=== PATIENT | male | born 1955 | race Caucasian/White ===

== ENCOUNTER 2016-04-07 13:58 | Emergency (ER) | payer OTHER ==
[~2016-04-07] VITALS: Ht 175.3 cm; Wt 70.9 kg
[~2016-04-07 13:58] MED LIST: ADALAT CC 60 MG60 MG PO; BENADRYL50 MG PO; CLONIDINE HCL0.1 MG PO; LEVAQUIN500 MG PO; OXYCODONE-ACET1 EACH PO; TERAZOSIN HCL1 MG PO; TRAMADOL HCL50 MG PO
[2016-04-07 14:58] LABS: HEMATOCRIT 31.3 % (38.0-50.0); MCH 28.2 PG (29.0-34.0); MCHC 32.9 G/DL (30.0-36.0); MCV 85.8 FL (86-99); MEAN PLAT.VOLUME 7.8 uM^3 (9.0-12.4); PLATELET COUNT 333 K/uL (156-360); RBC DIS.WIDTH-CV 13.9 % (11.8-14.6); RBC DIS.WIDTH-SD 42.5 % (39-53); RED BLOOD COUNT 3.65 M/uL (4.00-5.50); WHITE BLOOD COUNT 9.9 K/uL (4.1-10.2)
[2016-04-07 15:06] LABS: CHLORIDE 107 mEq/L (99-109); POTASSIUM 4.9 mEq/L (3.7-5.4); SODIUM 139 mEq/L (136-147)
[2016-04-07 15:08] LABS: GLUCOSE 132 mg/dL (70-99)
[2016-04-07 15:09] LABS: ANION GAP 15 MEQ/L (2-14)
[2016-04-07 15:10] LABS: TOTAL BILIRUBIN 0.3 mg/dL (0.0-1.0)
[2016-04-07 15:12] LABS: ALKALINE PHOSPHATASE 83 IU/L (3-129); GFR ESTIMATE (CALCULATED) 9 mL/min/
[2016-04-07 15:13] LABS: UREA NITROGEN (BUN) 82 mg/dL (9-23)
[2016-04-07 17:05] LABS: ADD MIUA? YES; BILIRUBIN NEGATIVE; BLOOD MODERATE; COLOR YELLOW ((YELLOW)); GLUCOSE (STRIP) NEGATIVE; KETONES NEGATIVE; LEUKOCYTES LARGE; NITRITE POSITIVE; PROTEIN (STRIP) 30; SPECIFIC GRAVITY 1.011 (1.000-1.030); UROBILINOGEN 0.2 MG/DL (0.2-1.0)
[2016-04-07 17:40] VITALS: BP 160/100
[2016-04-07 17:56] LABS: BACTERIA 1+; CASTS NONE SEEN /LPF; CRYSTALS NONE SEEN; EPITHELIAL CELLS RARE; MUCUS NONE SEEN; PATHOLOGICAL CAST NONE SEEN; RED BLOOD CELLS 15-20 /HPF (0-5); SMALL ROUND CELL NONE SEEN; UCUL ADDED? YES; WHITE BLOOD CELLS TNTC /HPF (0-5); YEAST-LIKE CELL NONE SEEN
[2016-04-07] MEDS ORDERED: KEFLEX500 MG PO (19:24)
[2016-04-07 19:30] VITALS: BP 166/100
== END 2016-04-07 19:49 | disposition home or self-care (01) ==
LOC: RME 13:58 → EME 13:58 → RME 19:49
DX: N17.9 Acute kidney failure, unspecified (principal); I12.9 Hypertensive chronic kidney disease with stage 1 through stage 4 chronic kidney disease, or unspecified chronic kidney disease; N18.4 Chronic kidney disease, stage 4 (severe); N39.0 Urinary tract infection, site not specified; D64.9 Anemia, unspecified; R73.9 Hyperglycemia, unspecified; C61 Malignant neoplasm of prostate; Z86.73 Personal history of transient ischemic attack (TIA), and cerebral infarction without residual deficits; F17.200 Nicotine dependence, unspecified, uncomplicated
CPT/HCPCS: 80053; 81003; 85027; 87086; 99281; 99284

== ENCOUNTER 2016-05-25 14:44 | Emergency (ER) | payer OTHER ==
[~2016-05-25] VITALS: Ht 167.6 cm; Wt 68.0 kg
[~2016-05-25 14:44] MED LIST changes: +KEFLEX500 MG PO
[2016-05-25 15:51] LABS: HEMATOCRIT 28.9 % (38.0-50.0); MCH 28.7 PG (29.0-34.0); MCHC 33.6 G/DL (30.0-36.0); MCV 85.5 FL (86-99); PLATELET COUNT 446 K/uL (156-360); RBC DIS.WIDTH-CV 13.9 % (11.8-14.6); RBC DIS.WIDTH-SD 42.1 % (39-53); RED BLOOD COUNT 3.38 M/uL (4.00-5.50)
[2016-05-25 16:10] LABS: CHLORIDE 103 mEq/L (99-109); POTASSIUM 5.1 mEq/L (3.7-5.4); SODIUM 134 mEq/L (136-147)
[2016-05-25 16:12] LABS: GLUCOSE 101 mg/dL (70-99)
[2016-05-25 16:13] LABS: ANION GAP 14 MEQ/L (2-14)
[2016-05-25 16:16] LABS: GFR ESTIMATE (CALCULATED) 9 mL/min/
[2016-05-25 16:17] LABS: UREA NITROGEN (BUN) 80 mg/dL (9-23)
[2016-05-25 16:23] LABS: ADD MIUA? YES; BILIRUBIN NEGATIVE; BLOOD MODERATE; COLOR YELLOW ((YELLOW)); GLUCOSE (STRIP) NEGATIVE; KETONES NEGATIVE; LEUKOCYTES LARGE; NITRITE NEGATIVE; PROTEIN (STRIP) 100; SPECIFIC GRAVITY 1.009 (1.000-1.030); UROBILINOGEN 0.2 MG/DL (0.2-1.0)
[2016-05-25 16:41] LABS: EOSINOPHIL (%) 0.4 % (0-5); EOSINOPHIL COUNT 0.1 K/uL (0-0.3); HEMATOLOGY COMMENT 1 SMEAR COMPATIBLE; IMMATURE GRANULOCYTE (%) 3.9 % (0.0-0.7); IMMATURE GRANULOCYTE COUNT 7.1 K/uL; LYMPHOCYTE COUNT 1.9 K/uL (1.0-2.8); MONOCYTE (%) 7.3 % (3-12); MONOCYTE COUNT 1.3 K/uL (0-0.8); NEUTROPHIL (%) 77.8 % (45-76); USER ID SS
[2016-05-25] MEDS ORDERED: LEVOFLOXACIN500 MG (16:46)
[2016-05-25] MEDS ORDERED: KEFLEX500 MG PO ×2 (16:50→17:16)
[2016-05-25 16:55] LABS: BACTERIA RARE /HPF; EPITHELIAL CELLS NONE SEEN /HPF; MUCUS TRACE /LPF; UCUL ADDED? YES; WHITE BLOOD CELLS TNTC /HPF (0-5); WHITE BLOOD CELLS CLUMP MANY /HPF (0-5)
[2016-05-25 18:16] VITALS: BP 134/74
== END 2016-05-25 18:18 | disposition home or self-care (01) ==
LOC: EME 14:44
PROVIDERS: Emergency Medicine
DX: N30.90 Cystitis, unspecified without hematuria (principal); I12.0 Hypertensive chronic kidney disease with stage 5 chronic kidney disease or end stage renal disease; N18.5 Chronic kidney disease, stage 5; C61 Malignant neoplasm of prostate; F17.200 Nicotine dependence, unspecified, uncomplicated
CPT/HCPCS: 71010; 74176; 80048; 81003; 85025; 87077; 87086; 87186; 99281; 99284

== ENCOUNTER 2016-07-18 16:38 | Inpatient (IN) | payer OTHER ==
[~2016-07-18] VITALS: Ht 172.7 cm; Wt 70.4 kg
[~2016-07-18 16:38] MED LIST changes: +LEVOFLOXACIN500 MG
[2016-07-18 19:14] LABS: HEMATOCRIT 29.6 % (38.0-50.0); MCH 28.6 PG (29.0-34.0); MCHC 32.8 G/DL (30.0-36.0); MCV 87.3 FL (86-99); MEAN PLAT.VOLUME 8.4 uM^3 (9.0-12.4); PLATELET COUNT 323 K/uL (156-360); RBC DIS.WIDTH-CV 13.2 % (11.8-14.6); RBC DIS.WIDTH-SD 42.4 % (39-53); RED BLOOD COUNT 3.39 M/uL (4.00-5.50); WHITE BLOOD COUNT 11.6 K/uL (4.1-10.2)
[2016-07-18 19:21] LABS: ADD MIUA? YES; BILIRUBIN NEGATIVE; BLOOD MODERATE; COLOR YELLOW ((YELLOW)); GLUCOSE (STRIP) NEGATIVE; KETONES NEGATIVE; LEUKOCYTES LARGE; NITRITE POSITIVE; PROTEIN (STRIP) 100; UROBILINOGEN 0.2 MG/DL (0.2-1.0)
[2016-07-18 19:38] LABS: CHLORIDE 102 mEq/L (99-109); POTASSIUM 4.9 mEq/L (3.7-5.4); SODIUM 133 mEq/L (136-147)
[2016-07-18 19:40] LABS: GLUCOSE 97 mg/dL (70-99)
[2016-07-18 19:42] LABS: ANION GAP 15 MEQ/L (2-14); TOTAL BILIRUBIN 0.6 mg/dL (0.0-1.0)
[2016-07-18 19:44] LABS: ALKALINE PHOSPHATASE 64 IU/L (3-129); GFR ESTIMATE (CALCULATED) 8 mL/min/
[2016-07-18 19:45] LABS: AMORPHOUS PHOSPHATE CRYSTALS 2+; BACTERIA 1+ /HPF; EPITHELIAL CELLS NONE SEEN /HPF; MUCUS NONE SEEN /LPF; RED BLOOD CELLS 15-20 /HPF (0-5); UCUL ADDED? NO; WHITE BLOOD CELLS 40-50 /HPF (0-5)
[2016-07-18 19:58] LABS: UREA NITROGEN (BUN) 101 mg/dL (9-23)
[2016-07-19 02:40] VITALS: BP 142/83
[2016-07-19 02:45] LABS: CREATINE KINASE 117 IU/L (1-294)
[2016-07-19 03:00] VITALS: BP 142/83
[2016-07-19 06:26] LABS: HEMATOCRIT 26.1 % (38.0-50.0); MCH 28.9 PG (29.0-34.0); MCHC 32.6 G/DL (30.0-36.0); MCV 88.8 FL (86-99); MEAN PLAT.VOLUME 8.4 uM^3 (9.0-12.4); PLATELET COUNT 254 K/uL (156-360); RBC DIS.WIDTH-CV 13.2 % (11.8-14.6); RBC DIS.WIDTH-SD 43.1 % (39-53); RED BLOOD COUNT 2.94 M/uL (4.00-5.50)
[2016-07-19 06:40] LABS: WHITE BLOOD COUNT 7.4 K/uL (4.1-10.2)
[2016-07-19 06:49] LABS: ANION GAP 15 MEQ/L (2-14); CHLORIDE 105 MEQ/L (99-109); GFR ESTIMATE (CALCULATED) 8 mL/min/; GLUCOSE 114 mg/dL (70-99); MAGNESIUM 2.1 mg/dl (1.3-2.7); POTASSIUM 5.1 MEQ/L (3.7-5.4); SAMPLE HEMOLYSIS CHECK 0; SAMPLE ICTERIC CHECK 0; SAMPLE LIPEMIA CHECK 0; SODIUM 139 MEQ/L (136-147); UREA NITROGEN (BUN) 97 mg/dL (9-23)
[2016-07-19 07:40] VITALS: BP 140/83
[2016-07-19 11:15] VITALS: BP 135/84
[2016-07-19 14:20] LABS: IRON 28 MCG/DL (35-150)
[2016-07-19 15:24] VITALS: BP 161/82
[2016-07-19 20:29] VITALS: BP 140/84
[2016-07-20 00:05] VITALS: BP 129/72
[2016-07-20 08:00] VITALS: BP 112/61
[2016-07-20 10:16] LABS: HEMATOCRIT 29.3 % (38.0-50.0); MCH 28.5 PG (29.0-34.0); MCHC 32.1 G/DL (30.0-36.0); MCV 88.8 FL (86-99); MEAN PLAT.VOLUME 8.6 uM^3 (9.0-12.4); PLATELET COUNT 284 K/uL (156-360); RBC DIS.WIDTH-CV 13.4 % (11.8-14.6); RBC DIS.WIDTH-SD 44.1 % (39-53); WHITE BLOOD COUNT 6.2 K/uL (4.1-10.2)
[2016-07-20 10:40] LABS: INTACT PARATHYROID HORMONE 34 pg/mL (10-69)
[2016-07-20 10:44] LABS: ANION GAP 15 MEQ/L (2-14); CHLORIDE 107 MEQ/L (99-109); GFR ESTIMATE (CALCULATED) 8 mL/min/; GLUCOSE 94 mg/dL (70-99); GLUCOSE 95 mg/dL (70-99); POTASSIUM 4.8 MEQ/L (3.7-5.4); SAMPLE HEMOLYSIS CHECK 0; SAMPLE ICTERIC CHECK 0; SAMPLE LIPEMIA CHECK 0; SODIUM 139 MEQ/L (136-147); UREA NITROGEN (BUN) 89 mg/dL (9-23)
[2016-07-20 10:56] LABS: VANCOMYCIN, TROUGH 8.7 MCG/ML (10-20)
[2016-07-20 11:46] LABS: HBSG INDEX 0.19
[2016-07-20 11:47] LABS: AHBS INDEX 0.05; HEPATITIS B SURFACE ANTIBODY Nonreactive; HPCA INDEX 0.19
[2016-07-20 15:42] VITALS: BP 152/93
[2016-07-20 21:26] VITALS: BP 133/81
[2016-07-21 00:01] VITALS: BP 156/85
[2016-07-22] MEDS ORDERED: LINEZOLID600 MG PO (16:02)
[2016-07-22] MEDS ORDERED: KAYEXALATE15 GM/60 M PO (17:47)
[2016-07-23 11:33] LABS: IFE GEL NO. 49-1
== END 2016-07-21 02:22 | disposition left against medical advice (07) | DRG 683 ==
LOC: EME 16:38 → EDOF 07-19 00:55 → 4SOUTH 07-19 00:55
PROVIDERS: Hospitalist; Internal Medicine; Physician Assistant; Student in an Organized Health Care Education/Training Program
DX: N17.9 Acute kidney failure, unspecified (principal); I12.0 Hypertensive chronic kidney disease with stage 5 chronic kidney disease or end stage renal disease; F17.210 Nicotine dependence, cigarettes, uncomplicated; N18.5 Chronic kidney disease, stage 5; N39.0 Urinary tract infection, site not specified; B95.62 Methicillin resistant Staphylococcus aureus infection as the cause of diseases classified elsewhere; Z85.46 Personal history of malignant neoplasm of prostate; Z96.0 Presence of urogenital implants; I69.954 Hemiplegia and hemiparesis following unspecified cerebrovascular disease affecting left non-dominant side; G89.29 Other chronic pain; N13.30 Unspecified hydronephrosis; E87.5 Hyperkalemia; Z87.440 Personal history of urinary (tract) infections; R33.9 Retention of urine, unspecified
CPT/HCPCS: 71020; 74176; 76770; 80048 91; 80053; 80069; 80202; 81003; 82306; 82436; 82550; 82550 91; 83540; 83605; 83735; 83970; 84133; 84300; 84403; 84466; 84550; 85027; 86334; 86706; 86803; 87040; 87077; 87086; 87147; 87186; 87340; 93975; 99281; 99285; G0103; J0696; J1756; J3370; J7030; J7050

== ENCOUNTER 2016-07-21 04:03 | Emergency (ER) | payer OTHER ==
[~2016-07-21] VITALS: Ht 172.7 cm; Wt 71.5 kg
[2016-07-21 04:08] VITALS: BP 146/89
[2016-07-22] MEDS ORDERED: LINEZOLID600 MG PO (16:02)
[2016-07-22] MEDS ORDERED: KAYEXALATE15 GM/60 M PO (17:47)
== END 2016-07-21 05:32 | disposition left against medical advice (07) ==
LOC: EME 04:03
DX: N18.6 End stage renal disease (principal); N39.0 Urinary tract infection, site not specified; Z86.14 Personal history of Methicillin resistant Staphylococcus aureus infection; Z53.20 Procedure and treatment not carried out because of patient's decision for unspecified reasons; Z86.73 Personal history of transient ischemic attack (TIA), and cerebral infarction without residual deficits; F17.200 Nicotine dependence, unspecified, uncomplicated

== ENCOUNTER 2016-07-21 13:31 | Emergency (ER) | payer OTHER ==
[~2016-07-21] VITALS: Ht 172.7 cm; Wt 70.0 kg
[2016-07-21 14:03] VITALS: BP 155/114
[2016-07-22] MEDS ORDERED: LINEZOLID600 MG PO (16:02)
[2016-07-22] MEDS ORDERED: KAYEXALATE15 GM/60 M PO (17:47)
== END 2016-07-21 15:01 | disposition left against medical advice (07) ==
LOC: EME 13:31
DX: R42 Dizziness and giddiness (principal); R53.1 Weakness; Z53.21 Procedure and treatment not carried out due to patient leaving prior to being seen by health care provider

== ENCOUNTER 2016-07-22 12:09 | Emergency (ER) | payer OTHER ==
[~2016-07-22] VITALS: Ht 172.7 cm; Wt 69.0 kg
[2016-07-22 12:16] VITALS: BP 167/115
[2016-07-22] MEDS ORDERED: LINEZOLID600 MG PO (16:02)
[2016-07-22] MEDS ORDERED: KAYEXALATE15 GM/60 M PO (17:47)
== END 2016-07-22 12:54 | disposition left against medical advice (07) ==
LOC: EME 12:09
DX: M79.602 Pain in left arm (principal); Z53.21 Procedure and treatment not carried out due to patient leaving prior to being seen by health care provider
CPT/HCPCS: 99281; 99282

== ENCOUNTER 2016-07-22 13:04 | Emergency (ER) | payer OTHER ==
[~2016-07-22] VITALS: Ht 172.7 cm; Wt 69.0 kg
[2016-07-22 14:25] LABS: HEMATOCRIT 32.7 % (38.0-50.0); MCH 28.3 PG (29.0-34.0); MCHC 32.4 G/DL (30.0-36.0); MCV 87.2 FL (86-99); MEAN PLAT.VOLUME 8.1 uM^3 (9.0-12.4); PLATELET COUNT 363 K/uL (156-360); RBC DIS.WIDTH-CV 13.2 % (11.8-14.6); RBC DIS.WIDTH-SD 41.9 % (39-53); RED BLOOD COUNT 3.75 M/uL (4.00-5.50)
[2016-07-22 14:26] LABS: WHITE BLOOD COUNT 8.8 K/uL (4.1-10.2)
[2016-07-22 14:34] LABS: CHLORIDE 103 mEq/L (99-109); POTASSIUM 5.5 mEq/L (3.7-5.4); SODIUM 136 mEq/L (136-147)
[2016-07-22 14:35] LABS: GLUCOSE 117 mg/dL (70-99)
[2016-07-22 14:37] LABS: ANION GAP 16 MEQ/L (2-14)
[2016-07-22 14:39] LABS: ADD MIUA? YES; BILIRUBIN NEGATIVE; BLOOD MODERATE; COLOR YELLOW ((YELLOW)); GLUCOSE (STRIP) NEGATIVE; KETONES NEGATIVE; LEUKOCYTES LARGE; NITRITE NEGATIVE; PROTEIN (STRIP) 100; UROBILINOGEN 0.2 MG/DL (0.2-1.0)
[2016-07-22 14:40] LABS: GFR ESTIMATE (CALCULATED) 8 mL/min/; UREA NITROGEN (BUN) 90 mg/dL (9-23)
[2016-07-22 14:50] LABS: SERUM ETHYL ALCOHOL < 10 mg/dL
[2016-07-22 15:17] LABS: BACTERIA RARE /HPF; BUDDING YEAST 2+; EPITHELIAL CELLS RARE /HPF; MUCUS NONE SEEN /LPF; RED BLOOD CELLS 40-50 /HPF (0-5)
[2016-07-22 15:19] LABS: UCUL ADDED? NO; WHITE BLOOD CELLS 40-50 /HPF (0-5)
[2016-07-22 15:41] LABS: AMPHETAMINE NEGATIVE (500 ng/mL); BARBITURATES NEGATIVE (200 ng/mL); BENZODIAZEPINES NEGATIVE (150 ng/mL); COCAINE NEGATIVE (150 ng/mL); INTERNAL CONTROLS VALID? YES; METHADONE NEGATIVE (200 ng/mL); METHAMPHETAMINE NEGATIVE (500 ng/mL); OPIATES (MORPHINE) NEGATIVE (100 ng/mL); OXYCODONE NEGATIVE (100 ng/mL); PHENCYCLIDINE NEGATIVE (25 ng/mL); PROPOXYPHENE NEGATIVE (300 ng/mL); THC CANNABINOIDS NEGATIVE (50 ng/mL); TRICYCLIC ANTIDEPRESSANTS NEGATIVE (300 ng/mL)
[2016-07-22] MEDS ORDERED: LINEZOLID600 MG PO (16:02)
[2016-07-22] MEDS ORDERED: KAYEXALATE15 GM/60 M PO (17:47)
[2016-07-22 19:08] VITALS: BP 123/93
== END 2016-07-22 19:11 | disposition left against medical advice (07) ==
LOC: EME 13:04
PROVIDERS: Emergency Medicine
DX: N18.6 End stage renal disease (principal); N39.0 Urinary tract infection, site not specified; E87.5 Hyperkalemia; F17.200 Nicotine dependence, unspecified, uncomplicated; Z86.73 Personal history of transient ischemic attack (TIA), and cerebral infarction without residual deficits
CPT/HCPCS: 80048; 81003; 85027; 93005; 93971; 99281; 99284; G0480

== ENCOUNTER 2016-07-22 20:25 | Emergency (ER) | payer OTHER ==
[~2016-07-22] VITALS: Ht 172.7 cm; Wt 69.4 kg
[~2016-07-22 20:25] MED LIST changes: +KAYEXALATE15 GM/60 M PO; +LINEZOLID600 MG PO
[2016-07-22 20:28] VITALS: BP 191/108
== END 2016-07-23 01:02 | disposition left against medical advice (07) ==
LOC: EME 20:25
DX: N17.9 Acute kidney failure, unspecified (principal); T80.1XXA Vascular complications following infusion, transfusion and therapeutic injection, initial encounter; I80.8 Phlebitis and thrombophlebitis of other sites; C61 Malignant neoplasm of prostate; C79.9 Secondary malignant neoplasm of unspecified site; I12.9 Hypertensive chronic kidney disease with stage 1 through stage 4 chronic kidney disease, or unspecified chronic kidney disease; N18.4 Chronic kidney disease, stage 4 (severe); F17.200 Nicotine dependence, unspecified, uncomplicated; Z86.73 Personal history of transient ischemic attack (TIA), and cerebral infarction without residual deficits
CPT/HCPCS: 71010; 80053; 81003; 83605; 85025; 87040; 93005; 99281; 99283

== ENCOUNTER 2016-10-12 08:55 | Day surgery (SDC) | payer OTHER ==
[~2016-10-12] VITALS: Ht 172.7 cm; Wt 70.0 kg
[2016-10-12] MEDS ORDERED: LASIX20 MG PO (09:26)
[2016-10-12 09:30] VITALS: BP 134/73
[2016-10-12 10:00] LABS: HEMATOCRIT 28.3 % (38.0-50.0); MCHC 32.9 G/DL (30.0-36.0); MCV 88.2 FL (86-99); MEAN PLAT.VOLUME 8.6 uM^3 (9.0-12.4); RBC DIS.WIDTH-CV 13.4 % (11.8-14.6); RBC DIS.WIDTH-SD 43.4 % (39-53); RED BLOOD COUNT 3.21 M/uL (4.00-5.50); WHITE BLOOD COUNT 6.6 K/uL (4.1-10.2)
[2016-10-12 10:06] LABS: PLATELET COUNT 144 K/uL (156-360)
[2016-10-12 10:32] LABS: ANION GAP 12 MEQ/L (2-14); CHLORIDE 109 MEQ/L (99-109); GFR ESTIMATE (CALCULATED) 7 mL/min/; GLUCOSE 93 mg/dL (70-99); POTASSIUM 5.2 MEQ/L (3.7-5.4); SAMPLE HEMOLYSIS CHECK 0; SAMPLE ICTERIC CHECK 0; SAMPLE LIPEMIA CHECK 0; SODIUM 139 MEQ/L (136-147); UREA NITROGEN (BUN) 91 mg/dL (9-23)
[2016-10-12 10:51] LABS: METH RESISTANT S AUREUS PCR POSITIVE (NEGATIVE)
[2016-10-12 10:58] LABS: PROBE CHECK PASS
[2016-10-12 14:06] VITALS: BP 142/84
[2016-10-12 14:50] VITALS: BP 138/86
== END 2016-10-12 15:05 | disposition home or self-care (01) ==
LOC: SDC 08:55
PROVIDERS: Surgery
PROC: 03180AD Bypass Left Brachial Artery to Upper Arm Vein with Autologous Arterial Tissue, Open Approach (ICD-10-PCS; principal; 2016-10-12)
DX: I12.0 Hypertensive chronic kidney disease with stage 5 chronic kidney disease or end stage renal disease (principal); N18.6 End stage renal disease; Z85.46 Personal history of malignant neoplasm of prostate; Z86.73 Personal history of transient ischemic attack (TIA), and cerebral infarction without residual deficits; F17.210 Nicotine dependence, cigarettes, uncomplicated
CPT/HCPCS: 80048; 85027; 87641; J0690; J1100; J1644; J2250; J2405; J2720; J3010

== ENCOUNTER → 2016-12-06 | Outpatient (CLI) | payer OTHER ==
[~2016-12-06] MED LIST changes: +LASIX20 MG PO
== END | disposition home or self-care (01) ==
LOC: CDC 14:30
DX: R94.31 Abnormal electrocardiogram [ECG] [EKG] (principal)
CPT/HCPCS: 93000

== ENCOUNTER 2017-02-12 15:34 | Inpatient (IN) | payer OTHER ==
[~2017-02-12] VITALS: Ht 172.7 cm; Wt 69.9 kg
[2017-02-12 16:17] LABS: HEMATOCRIT 28.2 % (38.0-50.0); MCH 29.2 PG (29.0-34.0); MCHC 31.2 G/DL (30.0-36.0); MCV 93.7 FL (86-99); MEAN PLAT.VOLUME 8.4 uM^3 (9.0-12.4); PLATELET COUNT 317 K/uL (156-360); RBC DIS.WIDTH-SD 44.1 % (39-53); RED BLOOD COUNT 3.01 M/uL (4.00-5.50); WHITE BLOOD COUNT 5.7 K/uL (4.1-10.2)
[2017-02-12 16:27] LABS: CHLORIDE 94 mEq/L (99-109); POTASSIUM 4.9 mEq/L (3.7-5.4); SODIUM 140 mEq/L (136-147)
[2017-02-12 16:28] LABS: GLUCOSE 118 mg/dL (70-99)
[2017-02-12 16:30] LABS: ANION GAP 12 MEQ/L (2-14)
[2017-02-12 16:32] LABS: GFR ESTIMATE (CALCULATED) 8 mL/min/
[2017-02-12 16:33] LABS: UREA NITROGEN (BUN) 21 mg/dL (9-23)
[2017-02-12 17:25] LABS: TROP-I INTERPRETATION NEGATIVE; TROPONIN-I 0.01 ng/mL (0.0-0.30)
[2017-02-12] MEDS ORDERED: AUGMENTIN875 MG PO (19:29)
[2017-02-12] MEDS ORDERED: CALCIUM ACETAT667 MG PO (20:09)
[2017-02-12] MEDS ORDERED: BACTRIM,SEPT1 TABLET PO (20:09)
[2017-02-12] MEDS ORDERED: BUSPAR5 MG PO (20:10)
[2017-02-12] MEDS ORDERED: VENTOLIN HFA18 GM IH (20:10)
[2017-02-12] MEDS ORDERED: NEPHRO-VITE,1 TABLET PO (20:10)
[2017-02-12] MEDS ORDERED: OXYCODONE HCL5 MG PO (20:10)
[2017-02-12 23:00] VITALS: BP 194/86
[2017-02-13 01:00] VITALS: BP 164/72
[2017-02-13 04:21] VITALS: BP 158/70
[2017-02-13 07:20] VITALS: BP 176/85
[2017-02-13 10:03] LABS: HEMATOCRIT 26.7 % (38.0-50.0); MCH 29.2 PG (29.0-34.0); MCHC 31.1 G/DL (30.0-36.0); MEAN PLAT.VOLUME 8.7 uM^3 (9.0-12.4); PLATELET COUNT 261 K/uL (156-360); RBC DIS.WIDTH-SD 44.8 % (39-53); RED BLOOD COUNT 2.84 M/uL (4.00-5.50); WHITE BLOOD COUNT 6.8 K/uL (4.1-10.2)
[2017-02-13 10:56] LABS: ANION GAP 11 MEQ/L (2-14); CHLORIDE 94 MEQ/L (99-109); POTASSIUM 5.7 MEQ/L (3.7-5.4); SAMPLE HEMOLYSIS CHECK 0; SAMPLE ICTERIC CHECK 0; SAMPLE LIPEMIA CHECK 0; SODIUM 139 MEQ/L (136-147)
[2017-02-13 11:02] LABS: GFR ESTIMATE (CALCULATED) 7 mL/min/; GLUCOSE 128 mg/dL (70-99)
[2017-02-13 11:06] LABS: UREA NITROGEN (BUN) 33 mg/dL (9-23)
[2017-02-13 12:20] LABS: TROP-I INTERPRETATION NEGATIVE; TROPONIN-I < 0.01 ng/mL (0.0-0.30)
[2017-02-13 13:34] LABS: INTER. NORMALIZED RATIO 1.1; PROTHROMBIN TIME 12.3 SEC (10.2-12.9)
[2017-02-13 13:36] LABS: PTT 31.2 SEC (25-37)
[2017-02-13 16:13] LABS: IRON 63 MCG/DL (35-150)
[2017-02-13 17:20] VITALS: BP 155/76
[2017-02-13 22:08] LABS: ADD MIUA? YES; BILIRUBIN NEGATIVE; BLOOD MODERATE; COLOR YELLOW ((YELLOW)); GLUCOSE (STRIP) 150; KETONES NEGATIVE; LEUKOCYTES NEGATIVE; NITRITE NEGATIVE; PROTEIN (STRIP) >=500; SPECIFIC GRAVITY 1.016 (1.000-1.030); UROBILINOGEN 0.2 MG/DL (0.2-1.0)
[2017-02-13 22:32] LABS: BACTERIA NONE SEEN /HPF; CASTS NONE SEEN /LPF; CRYSTALS NONE SEEN; EPITHELIAL CELLS RARE /HPF; MUCUS NONE SEEN /LPF; RED BLOOD CELLS TNTC /HPF (0-5); UCUL ADDED? YES; WHITE BLOOD CELLS 0-5 /HPF (0-5)
[2017-02-13 23:18] VITALS: BP 136/66
[2017-02-13 23:19] LABS: TROP-I INTERPRETATION NEGATIVE; TROPONIN-I 0.02 ng/mL (0.0-0.30)
[2017-02-14 08:06] LABS: EOSINOPHIL (%) 0.1 % (0-5); HEMATOCRIT 26.8 % (38.0-50.0); IMMATURE GRANULOCYTE (%) 0.6 % (0.0-0.7); IMMATURE GRANULOCYTE COUNT 0.1 K/uL; INSTRUMENT ABS NEUTROPHIL CT 10.3 K/uL; LYMPHOCYTE COUNT 1.2 K/uL (1.0-2.8); MCH 29.4 PG (29.0-34.0); MEAN PLAT.VOLUME 8.8 uM^3 (9.0-12.4); MONOCYTE (%) 7.8 % (3-12); NEUTROPHIL (%) 81.5 % (45-76); NEUTROPHIL COUNT 10.3 K/uL (1.8-6.4); PLATELET COUNT 293 K/uL (156-360); RBC DIS.WIDTH-CV 13.5 % (11.8-14.6); RBC DIS.WIDTH-SD 46.3 % (39-53); RED BLOOD COUNT 2.82 M/uL (4.00-5.50); WHITE BLOOD COUNT 12.6 K/uL (4.1-10.2)
[2017-02-14 08:18] VITALS: BP 173/81
[2017-02-14 08:27] LABS: ALKALINE PHOSPHATASE 47 IU/L (3-129); ANION GAP 15 MEQ/L (2-14); CHLORIDE 95 MEQ/L (99-109); GFR ESTIMATE (CALCULATED) 6 mL/min/; GLUCOSE 142 mg/dL (70-99); POTASSIUM 5.6 MEQ/L (3.7-5.4); SAMPLE HEMOLYSIS CHECK 0; SAMPLE ICTERIC CHECK 0; SAMPLE LIPEMIA CHECK 0; SODIUM 139 MEQ/L (136-147); TOTAL BILIRUBIN 0.3 MG/DL (0.0-1.0)
[2017-02-14 08:29] LABS: UREA NITROGEN (BUN) 51 mg/dL (9-23)
[2017-02-14 12:02] VITALS: BP 184/93
[2017-02-14 16:03] VITALS: BP 155/84
[2017-02-14 21:50] VITALS: BP 161/79
[2017-02-15 06:09] LABS: EOSINOPHIL (%) 0 % (0-5); IMMATURE GRANULOCYTE (%) 1.6 % (0.0-0.7); IMMATURE GRANULOCYTE COUNT 0.2 K/uL; INSTRUMENT ABS NEUTROPHIL CT 9.2 K/uL; LYMPHOCYTE COUNT 1.5 K/uL (1.0-2.8); MCH 29.7 PG (29.0-34.0); MCHC 31.1 G/DL (30.0-36.0); MCV 95.4 FL (86-99); MEAN PLAT.VOLUME 8.7 uM^3 (9.0-12.4); MONOCYTE (%) 10.5 % (3-12); MONOCYTE COUNT 1.3 K/uL (0-0.8); NEUTROPHIL (%) 75.4 % (45-76); NEUTROPHIL COUNT 9.2 K/uL (1.8-6.4); PLATELET COUNT 278 K/uL (156-360); RBC DIS.WIDTH-CV 13.6 % (11.8-14.6); RED BLOOD COUNT 2.83 M/uL (4.00-5.50); WHITE BLOOD COUNT 12.3 K/uL (4.1-10.2)
[2017-02-15 06:37] LABS: ANION GAP 10 MEQ/L (2-14); CHLORIDE 99 MEQ/L (99-109); GFR ESTIMATE (CALCULATED) 8 mL/min/; POTASSIUM 5.5 MEQ/L (3.7-5.4); SAMPLE HEMOLYSIS CHECK 0; SAMPLE ICTERIC CHECK 0; SAMPLE LIPEMIA CHECK 0; SODIUM 139 MEQ/L (136-147); UREA NITROGEN (BUN) 47 mg/dL (9-23)
[2017-02-15 06:38] LABS: GLUCOSE 99 mg/dL (70-99)
[2017-02-15 08:18] VITALS: BP 166/82
[2017-02-15 15:22] VITALS: BP 170/79
[2017-02-15 22:20] VITALS: BP 138/79
[2017-02-16 07:00] VITALS: BP 162/83
[2017-02-16 08:12] LABS: EOSINOPHIL (%) 0.1 % (0-5); HEMATOCRIT 28.6 % (38.0-50.0); IMMATURE GRANULOCYTE (%) 3.6 % (0.0-0.7); IMMATURE GRANULOCYTE COUNT 0.4 K/uL; LYMPHOCYTE COUNT 2.5 K/uL (1.0-2.8); MCHC 31.1 G/DL (30.0-36.0); MCV 93.2 FL (86-99); MEAN PLAT.VOLUME 8.4 uM^3 (9.0-12.4); MONOCYTE (%) 10.9 % (3-12); MONOCYTE COUNT 1.3 K/uL (0-0.8); NRBC (%) 0.2 /100 WBC (0-0); PLATELET COUNT 308 K/uL (156-360); RBC DIS.WIDTH-CV 13.7 % (11.8-14.6); RBC DIS.WIDTH-SD 46.5 % (39-53); RED BLOOD COUNT 3.07 M/uL (4.00-5.50); WHITE BLOOD COUNT 12.3 K/uL (4.1-10.2)
[2017-02-16 08:46] LABS: ANION GAP 15 MEQ/L (2-14); CHLORIDE 99 MEQ/L (99-109); GFR ESTIMATE (CALCULATED) 7 mL/min/; GLUCOSE 82 mg/dL (70-99); POTASSIUM 4.9 MEQ/L (3.7-5.4); SAMPLE HEMOLYSIS CHECK 0; SAMPLE ICTERIC CHECK 0; SAMPLE LIPEMIA CHECK 0; SODIUM 137 MEQ/L (136-147); UREA NITROGEN (BUN) 69 mg/dL (9-23)
[2017-02-16 16:50] VITALS: BP 133/66
[2017-02-16 23:08] VITALS: BP 117/66
[2017-02-17 06:55] VITALS: BP 147/73
[2017-02-17 15:21] VITALS: BP 140/80
[2017-02-17] MEDS ORDERED: VENTOLIN HFA18 GM IH (15:33)
[2017-02-17] MEDS ORDERED: SPIRIVA RESPIMAT4 GM IH (15:33)
[2017-02-17] MEDS ORDERED: PREDNISONE5 MG PO (15:34)
[2017-02-17] MEDS ORDERED: LOSARTAN POTASS50 MG PO (15:34)
[2017-02-17] MEDS ORDERED: SALINE FLUSH 1010 ML IV (15:45)
[2017-02-17] MEDS ORDERED: AIRDUO RESPICL1 EAC1 IH (16:00)
== END 2017-02-17 18:35 | disposition home health service (06) | DRG 189 ==
LOC: EME 15:34 → 5EAST 20:03 → EDOF 20:03 → ENRESERV 20:08 → 5EAST 22:49
PROVIDERS: Hospitalist; Internal Medicine; Nurse Practitioner Family; Radiology Diagnostic Radiology; Student in an Organized Health Care Education/Training Program
DX: J96.01 Acute respiratory failure with hypoxia (principal); J44.1 Chronic obstructive pulmonary disease with (acute) exacerbation; N13.1 Hydronephrosis with ureteral stricture, not elsewhere classified; I12.0 Hypertensive chronic kidney disease with stage 5 chronic kidney disease or end stage renal disease; N18.6 End stage renal disease; E87.5 Hyperkalemia; E83.39 Other disorders of phosphorus metabolism; C61 Malignant neoplasm of prostate; R31.9 Hematuria, unspecified; R07.89 Other chest pain; D63.1 Anemia in chronic kidney disease; D50.9 Iron deficiency anemia, unspecified; R33.9 Retention of urine, unspecified; F41.9 Anxiety disorder, unspecified; G89.29 Other chronic pain; F17.210 Nicotine dependence, cigarettes, uncomplicated; R53.1 Weakness; I69.398 Other sequelae of cerebral infarction; Z87.440 Personal history of urinary (tract) infections; Z99.2 Dependence on renal dialysis; Z79.2 Long term (current) use of antibiotics
CPT/HCPCS: 49405; 50433; 71020; 71275; 80048; 80053; 80069; 81003; 83540; 83880; 84100; 84466; 84484; 85025; 85027; 85379; 85610; 85730; 87086; 93005; 93306; 94640; 94640 76; 94760; 94799; 99202; 99281; 99284; C1769; J0360; J0881; J1170; J1644; J1756; J1940; J2930; J3010; J7512

== ENCOUNTER 2017-02-27 11:02 | Emergency (ER) | payer OTHER ==
[~2017-02-27] VITALS: Ht 172.7 cm; Wt 71.6 kg
[~2017-02-27 11:02] MED LIST changes: +AIRDUO RESPICL1 EAC1 IH; +AUGMENTIN875 MG PO; +BACTRIM,SEPT1 TABLET PO; +BUSPAR5 MG PO; +CALCIUM ACETAT667 MG PO; +LOSARTAN POTASS50 MG PO; +NEPHRO-VITE,1 TABLET PO; +OXYCODONE HCL5 MG PO; +PREDNISONE5 MG PO; +SALINE FLUSH 1010 ML IV; +SPIRIVA RESPIMAT4 GM IH; +VENTOLIN HFA18 GM IH
[2017-02-27 12:20] LABS: EOSINOPHIL (%) 0.2 % (0-5); HEMATOCRIT 33.8 % (38.0-50.0); IMMATURE GRANULOCYTE (%) 1.3 % (0.0-0.7); IMMATURE GRANULOCYTE COUNT 0.2 K/uL; INSTRUMENT ABS NEUTROPHIL CT 11.5 K/uL; LYMPHOCYTE COUNT 0.8 K/uL (1.0-2.8); MCH 29.4 PG (29.0-34.0); MCHC 30.2 G/DL (30.0-36.0); MCV 97.4 FL (86-99); MEAN PLAT.VOLUME 8.3 uM^3 (9.0-12.4); MONOCYTE (%) 3.8 % (3-12); MONOCYTE COUNT 0.5 K/uL (0-0.8); NEUTROPHIL COUNT 11.5 K/uL (1.8-6.4); PLATELET COUNT 286 K/uL (156-360); RBC DIS.WIDTH-CV 16.3 % (11.8-14.6); RBC DIS.WIDTH-SD 57.5 % (39-53); RED BLOOD COUNT 3.47 M/uL (4.00-5.50)
[2017-02-27 12:29] LABS: CHLORIDE 100 mEq/L (99-109); SODIUM 135 mEq/L (136-147)
[2017-02-27 12:30] LABS: GLUCOSE 89 mg/dL (70-99)
[2017-02-27 12:32] LABS: ANION GAP 14 MEQ/L (2-14)
[2017-02-27 12:34] LABS: GFR ESTIMATE (CALCULATED) 7 mL/min/
[2017-02-27 12:35] LABS: UREA NITROGEN (BUN) 59 mg/dL (9-23)
[2017-02-27 14:29] VITALS: BP 142/67
== END 2017-02-27 14:30 | disposition left against medical advice (07) ==
LOC: EME 11:02
PROVIDERS: Emergency Medicine
DX: N99.522 Malfunction of incontinent external stoma of urinary tract (principal); I12.0 Hypertensive chronic kidney disease with stage 5 chronic kidney disease or end stage renal disease; N18.6 End stage renal disease; Z99.2 Dependence on renal dialysis; E87.5 Hyperkalemia; Z85.46 Personal history of malignant neoplasm of prostate; F17.200 Nicotine dependence, unspecified, uncomplicated; Z53.20 Procedure and treatment not carried out because of patient's decision for unspecified reasons
CPT/HCPCS: 80048; 85025; 93005; 99281; 99285

== ENCOUNTER → 2017-03-31 | Outpatient (CLI) | payer OTHER ==
[~2017-03-31] MED LIST changes: +AMOX TR-K CLV1 EAC4 PO; +ERGOCALCIF50000 UNIT PO; +PERCOCET 5/31 TABLET PO
== END | disposition home or self-care (01) ==
LOC: EDSTATUS 03-28 09:00 → OPR 03-28 09:00
PROC: 0T783DZ Dilation of Bilateral Ureters with Intraluminal Device, Percutaneous Approach (ICD-10-PCS; principal; 2017-03-31)
DX: N13.5 Crossing vessel and stricture of ureter without hydronephrosis (principal); N13.30 Unspecified hydronephrosis; C61 Malignant neoplasm of prostate; I12.0 Hypertensive chronic kidney disease with stage 5 chronic kidney disease or end stage renal disease; N18.5 Chronic kidney disease, stage 5; F17.200 Nicotine dependence, unspecified, uncomplicated; Z86.73 Personal history of transient ischemic attack (TIA), and cerebral infarction without residual deficits; Z85.828 Personal history of other malignant neoplasm of skin
CPT/HCPCS: 50695; C1725; C1769; J1170; J3010

== ENCOUNTER 2017-06-16 20:42 | Emergency (ER) | payer OTHER ==
[~2017-06-16] VITALS: Ht 172.7 cm; Wt 67.5 kg
[2017-06-16 21:12] LABS: HEMOGLOBIN 11.5 G/DL (12.5-16.6); MCH 29.6 PG (29.0-34.0); MCHC 31.9 G/DL (30.0-36.0); MCV 92.8 FL (86-99); PLATELET COUNT 286 K/uL (156-360); RBC DIS.WIDTH-CV 13.2 % (11.8-14.6); RBC DIS.WIDTH-SD 44.1 % (39-53); RED BLOOD COUNT 3.88 M/uL (4.00-5.50); WHITE BLOOD COUNT 7.9 K/uL (4.1-10.2)
[2017-06-16 21:22] LABS: CHLORIDE 99 mEq/L (99-109); GLUCOSE 112 mg/dL (70-99); POTASSIUM 4.5 mEq/L (3.7-5.4); SODIUM 140 mEq/L (136-147)
[2017-06-16 21:29] LABS: CREATININE 3.9 mg/dL (0.6-1.3); GFR ESTIMATE (CALCULATED) 17 mL/min/ (58.99-99999); UREA NITROGEN (BUN) 18 mg/dL (9-23)
[2017-06-16 21:33] LABS: TROP-I INTERPRETATION NEGATIVE; TROPONIN-I < 0.01 ng/mL (0.0-0.30)
[2017-06-16 21:56] LABS: ALBUMIN 4.1 g/dL (3.2-4.8)
[2017-06-16 21:59] LABS: TOTAL PROTEIN 6.9 g/dL (6.4-8.3)
[2017-06-16 22:00] LABS: TOTAL BILIRUBIN 0.4 mg/dL (0.0-1.0)
[2017-06-16 22:02] LABS: ALKALINE PHOSPHATASE 221 IU/L (3-129)
[2017-06-16 22:04] LABS: AST (GOT) 20 IU/L (2-34); DIRECT BILIRUBIN 0.2 mg/dL (0.0-0.3)
[2017-06-16 22:05] LABS: ALT (GPT) 10 IU/L (3-49); LIPASE 24 U/L (1.0-51.0)
[2017-06-16 23:19] LABS: APPEARANCE CLOUDY ((CLEAR)); BILIRUBIN NEGATIVE; BLOOD LARGE; COLOR RED ((YELLOW)); GLUCOSE (STRIP) NEGATIVE; KETONES NEGATIVE; LEUKOCYTES MODERATE; NITRITE NEGATIVE; PROTEIN (STRIP) >=500; SPECIFIC GRAVITY 1.011 (1.000-1.030); UROBILINOGEN 0.2 MG/DL (0.2-1.0)
[2017-06-16 23:38] LABS: BACTERIA RARE /HPF; EPITHELIAL CELLS RARE /HPF; MUCUS NONE SEEN /LPF; RED BLOOD CELLS TNTC /HPF (0-5); UCUL ADDED? YES
[2017-06-17] MEDS ORDERED: KEFLEX500 MG PO (00:43)
[2017-06-17 01:17] VITALS: BP 111/66
== END 2017-06-17 01:22 | disposition home or self-care (01) ==
LOC: EME 20:42
PROVIDERS: Emergency Medicine
DX: N30.01 Acute cystitis with hematuria (principal); R10.84 Generalized abdominal pain; Z85.46 Personal history of malignant neoplasm of prostate; Z86.73 Personal history of transient ischemic attack (TIA), and cerebral infarction without residual deficits; F41.9 Anxiety disorder, unspecified; I10 Essential (primary) hypertension; F17.200 Nicotine dependence, unspecified, uncomplicated
CPT/HCPCS: 71046; 74176; 80048; 80076; 81003; 83690; 84484; 85027; 86850; 86900; 86901; 87077; 87086; 87186; 93005; 99281; 99285; J0696; J2060; J2270

== ENCOUNTER → 2017-08-03 | Outpatient (CLI) | payer OTHER | END | disposition home or self-care (01) | LOC: NUC 06:33 | DX: C61 Malignant neoplasm of prostate (principal) | CPT/HCPCS: 78306; A9503 ==

== ENCOUNTER 2017-09-13 06:05 | Inpatient (IN) | payer OTHER ==
[~2017-09-13] VITALS: Ht 172.7 cm; Wt 60.0 kg
[~2017-09-13 06:05] MED LIST changes: +BUSPAR10 MG PO; -BUSPAR5 MG PO; +OXYCODONE HCL10 MG PO; -OXYCODONE HCL5 MG PO
[2017-09-13 06:42] LABS: HEMATOCRIT 17.4 % (38.0-50.0); MCH 28.9 PG (29.0-34.0); MCHC 33.3 G/DL (30.0-36.0); MCV 86.6 FL (86-99); NRBC (%) 3.4 /100 WBC (0-0); RBC DIS.WIDTH-CV 18.6 % (11.8-14.6); RBC DIS.WIDTH-SD 55.7 % (39-53); RED BLOOD COUNT 2.01 M/uL (4.00-5.50); WHITE BLOOD COUNT 2.3 K/uL (4.1-10.2)
[2017-09-13 06:43] LABS: HEMOGLOBIN 5.8 G/DL (12.5-16.6)
[2017-09-13 07:03] LABS: CHLORIDE 91 MEQ/L (99-109); POTASSIUM 3.5 MEQ/L (3.7-5.4); SODIUM 134 MEQ/L (136-147)
[2017-09-13 07:08] LABS: CREATININE 4.5 MG/DL (0.6-1.3); GFR ESTIMATE (CALCULATED) 14 mL/min/ (58.99-99999); GLUCOSE 124 mg/dL (70-99); UREA NITROGEN (BUN) 24 mg/dL (9-23)
[2017-09-13 07:12] LABS: TROP-I INTERPRETATION NEGATIVE; TROPONIN-I 0.02 ng/mL (0.0-0.30)
[2017-09-13 07:26] LABS: IMM.PLATELET FRACTION 3.5 (1-7); PLAT.SUFFICIENCY DECREASED; PLATELET COUNT 40 K/uL (156-360)
[2017-09-13] MEDS ORDERED: BUSPAR10 MG PO (08:02)
[2017-09-13] MEDS ORDERED: SPIRIVA RESPIMAT4 GM IH (08:04)
[2017-09-13] MEDS ORDERED: MUCINEX1200 MG PO (08:05)
[2017-09-13] MEDS ORDERED: FENTANYL1 EAC5 TD (08:06)
[2017-09-13] MEDS ORDERED: ONDANSETRON ODT4 MG PO (08:16)
[2017-09-13] MEDS ORDERED: BACTRIM,SEPT1 TABLE1 PO (08:17)
[2017-09-13 08:49] VITALS: BP 99/51
[2017-09-13 11:35] LABS: HEPATITIS B SURFACE ANTIGEN Nonreactive
[2017-09-13 14:23] LABS: IRON 136 MCG/DL (35-150); TRANSFERRIN (TIBC) 172.4 mg/dL (215-380); TRANSFERRIN SATUR. 79 % (20-55)
[2017-09-13 15:12] VITALS: BP 124/54
[2017-09-13 19:02] VITALS: BP 139/64
[2017-09-14 03:53] VITALS: BP 108/56
[2017-09-14 07:20] VITALS: BP 126/59
[2017-09-14 11:33] VITALS: BP 122/58
[2017-09-14 16:38] VITALS: BP 130/71
[2017-09-14 19:29] VITALS: BP 118/64
[2017-09-14 23:25] VITALS: BP 114/56
[2017-09-15 03:00] VITALS: BP 123/53
[2017-09-15 09:13] VITALS: BP 118/55
[2017-09-15 09:43] LABS: HEMATOCRIT 21.6 % (38.0-50.0); HEMOGLOBIN 7.2 G/DL (12.5-16.6); MCH 29.1 PG (29.0-34.0); MCHC 33.3 G/DL (30.0-36.0); MCV 87.4 FL (86-99); NRBC (%) 1.7 /100 WBC (0-0); RBC DIS.WIDTH-CV 18.4 % (11.8-14.6); RBC DIS.WIDTH-SD 55.4 % (39-53); WHITE BLOOD COUNT 2.4 K/uL (4.1-10.2)
[2017-09-15 09:44] LABS: RED BLOOD COUNT 2.47 M/uL (4.00-5.50)
[2017-09-15 09:45] LABS: CHLORIDE 98 MEQ/L (99-109); CREATININE 4.2 MG/DL (0.6-1.3); GFR ESTIMATE (CALCULATED) 15 mL/min/ (58.99-99999); GLUCOSE 107 mg/dL (70-99); SODIUM 133 MEQ/L (136-147); UREA NITROGEN (BUN) 29 mg/dL (9-23)
[2017-09-15 09:51] LABS: POTASSIUM 4.9 MEQ/L (3.7-5.4)
[2017-09-15 10:13] LABS: ABS NEUTROPHIL COUNT 1.8; ANISOCYTOSIS 2+; BASOPHILS 0.9 %; EOSINOPHIL ABS CT 0; EOSINOPHILS 1.8 % (0-5.0); IMM.PLATELET FRACTION 3.1 (1-7); LYMPHOCYTES 12.6 % (15.0-45.0); METAMYELOCYTES 0.9 %; MICROCYTOSIS 2+; MONOCYTES 6.3 % (0-9.0); MYELOCYTES 1.8 %; NUCLEATED RBC'S 3.6; PLAT.SUFFICIENCY VERY DECREASED; SEG.NEUTROPHILS 66.7 % (46.0-76.0); SMUDGE CELLS 2.7
[2017-09-15 10:26] LABS: PLATELET COUNT 28 K/uL (156-360)
[2017-09-15 12:46] LABS: HEPATITIS B SURFACE ANTIGEN Nonreactive
[2017-09-15 14:39] VITALS: BP 109/54
[2017-09-15 19:17] VITALS: BP 104/55
[2017-09-15 22:48] VITALS: BP 114/57
[2017-09-16 04:08] VITALS: BP 112/52
[2017-09-16 07:36] VITALS: BP 109/56
[2017-09-16 11:10] VITALS: BP 118/59
[2017-09-16 15:15] VITALS: BP 121/58
[2017-09-16 19:09] VITALS: BP 120/60
[2017-09-16 22:46] VITALS: BP 131/64
[2017-09-17 03:50] VITALS: BP 128/60
[2017-09-17 07:10] VITALS: BP 111/55
[2017-09-17 11:06] VITALS: BP 110/54
[2017-09-17 15:25] VITALS: BP 132/63
[2017-09-17 19:06] VITALS: BP 104/55
[2017-09-17 23:05] VITALS: BP 119/57
[2017-09-18 03:43] VITALS: BP 109/55
[2017-09-18 07:24] VITALS: BP 117/55
[2017-09-18 09:48] LABS: ALBUMIN 3.2 G/DL (3.2-4.8); CHLORIDE 94 MEQ/L (99-109); CREATININE 4.8 MG/DL (0.6-1.3); GFR ESTIMATE (CALCULATED) 13 mL/min/ (58.99-99999); GLUCOSE 127 mg/dL (70-99); PHOSPHORUS 3.7 mg/dL (2.5-4.9); SODIUM 130 MEQ/L (136-147)
[2017-09-18 09:50] LABS: UREA NITROGEN (BUN) 48 mg/dL (9-23)
[2017-09-18 10:06] LABS: HEMATOCRIT 22.8 % (38.0-50.0); HEMOGLOBIN 7.6 G/DL (12.5-16.6); IMM.PLATELET FRACTION 2.7 (1-7); MCH 28.9 PG (29.0-34.0); MCHC 33.3 G/DL (30.0-36.0); MCV 86.7 FL (86-99); NRBC (%) 1.6 /100 WBC (0-0); PLATELET COUNT 35 K/uL (156-360); RBC DIS.WIDTH-SD 54.1 % (39-53); RED BLOOD COUNT 2.63 M/uL (4.00-5.50)
[2017-09-18 10:07] LABS: WHITE BLOOD COUNT 1.9 K/uL (4.1-10.2)
[2017-09-18 10:33] LABS: ABS NEUTROPHIL COUNT 1.3; ANISOCYTOSIS 2+; ATYPICAL LYMPHOCYTE 1.8 %; BAND NEUTROPHILS 11.4 % (0-8.0); EOSINOPHIL ABS CT 0; EOSINOPHILS 1.7 % (0-5.0); HELMET CELLS 1+; LYMPHOCYTES 18.4 % (15.0-45.0); METAMYELOCYTES 2.6 %; MICROCYTOSIS 2+; MONOCYTES 4.4 % (0-9.0); MYELOCYTES 1.8 %; NUCLEATED RBC'S 3.5; OVALOCYTES 1+; PLAT.SUFFICIENCY DECREASED; POLYCHROMASIA 1+; SEG.NEUTROPHILS 57.9 % (46.0-76.0); TEAR DROP CELLS 1+
[2017-09-18 13:00] VITALS: BP 121/55
[2017-09-18 16:51] VITALS: BP 120/70
[2017-09-18 21:25] VITALS: BP 129/60
[2017-09-19 06:50] VITALS: BP 128/64
[2017-09-19 08:20] LABS: HEMOGLOBIN 7.4 G/DL (12.5-16.6); MCH 28.4 PG (29.0-34.0); MCHC 32.2 G/DL (30.0-36.0); MCV 88.1 FL (86-99); NRBC (%) 1.5 /100 WBC (0-0); RBC DIS.WIDTH-SD 55.5 % (39-53); RED BLOOD COUNT 2.61 M/uL (4.00-5.50)
[2017-09-19 08:34] LABS: CHLORIDE 96 MEQ/L (99-109); CREATININE 3.5 MG/DL (0.6-1.3); GFR ESTIMATE (CALCULATED) 19 mL/min/ (58.99-99999); GLUCOSE 115 mg/dL (70-99); POTASSIUM 4.5 MEQ/L (3.7-5.4); SODIUM 135 MEQ/L (136-147); UREA NITROGEN (BUN) 35 mg/dL (9-23)
[2017-09-19 08:49] LABS: ABS NEUTROPHIL COUNT 1.2; ANISOCYTOSIS 1+; ATYPICAL LYMPHOCYTE 0.9 %; BAND NEUTROPHILS 10.6 % (0-8.0); EOSINOPHIL ABS CT 0; IMM.PLATELET FRACTION 2.2 (1-7); MACROCYTES 1+; METAMYELOCYTES 2.7 %; MICROCYTOSIS 1+; MONOCYTES 12.4 % (0-9.0); NUCLEATED RBC'S 0.9; PLAT.SUFFICIENCY VERY DECREASED; PLATELET COUNT 37 K/uL (156-360); POLYCHROMASIA 1+; SEG.NEUTROPHILS 50.4 % (46.0-76.0)
[2017-09-19 11:17] VITALS: BP 101/54
[2017-09-19 14:50] VITALS: BP 92/55
[2017-09-19 20:51] VITALS: BP 102/51
[2017-09-20 00:37] VITALS: BP 130/60
[2017-09-20 04:03] VITALS: BP 151/66
[2017-09-20 06:38] LABS: HEMATOCRIT 21.4 % (38.0-50.0); IMM.PLATELET FRACTION 2.1 (1-7); MCH 28.3 PG (29.0-34.0); MCHC 32.2 G/DL (30.0-36.0); MCV 87.7 FL (86-99); NRBC (%) 1.1 /100 WBC (0-0); RBC DIS.WIDTH-SD 56.1 % (39-53); RED BLOOD COUNT 2.44 M/uL (4.00-5.50)
[2017-09-20 06:47] VITALS: BP 122/55
[2017-09-20 06:48] LABS: HEMOGLOBIN 6.9 G/DL (12.5-16.6); PLATELET COUNT 52 K/uL (156-360); WHITE BLOOD COUNT 1.8 K/uL (4.1-10.2)
[2017-09-20 06:55] LABS: ALBUMIN 3.3 G/DL (3.2-4.8); CHLORIDE 95 MEQ/L (99-109); GFR ESTIMATE (CALCULATED) 14 mL/min/ (58.99-99999); GLUCOSE 125 mg/dL (70-99); PHOSPHORUS 4.4 mg/dL (2.5-4.9); POTASSIUM 4.8 MEQ/L (3.7-5.4); SODIUM 134 MEQ/L (136-147); UREA NITROGEN (BUN) 49 mg/dL (9-23)
[2017-09-20 07:00] LABS: CREATININE 4.6 MG/DL (0.6-1.3)
[2017-09-20 11:17] VITALS: BP 123/58
[2017-09-20 12:07] LABS: HEMATOCRIT 20.9 % (38.0-50.0); MCV 87.8 FL (86-99)
[2017-09-20 16:26] VITALS: BP 129/59
[2017-09-20 23:20] VITALS: BP 107/52
[2017-09-21 06:05] LABS: HEMATOCRIT 25.6 % (38.0-50.0); HEMOGLOBIN 8.3 G/DL (12.5-16.6); MCH 28.1 PG (29.0-34.0); MCHC 32.4 G/DL (30.0-36.0); MCV 86.8 FL (86-99); RBC DIS.WIDTH-CV 17.3 % (11.8-14.6); RBC DIS.WIDTH-SD 53.5 % (39-53)
[2017-09-21 06:33] LABS: CHLORIDE 93 MEQ/L (99-109); GFR ESTIMATE (CALCULATED) 20 mL/min/ (58.99-99999); GLUCOSE 112 mg/dL (70-99); POTASSIUM 3.9 MEQ/L (3.7-5.4); SODIUM 134 MEQ/L (136-147); UREA NITROGEN (BUN) 33 mg/dL (9-23)
[2017-09-21 06:40] LABS: CREATININE 3.3 MG/DL (0.6-1.3)
[2017-09-21 06:56] LABS: RED BLOOD COUNT 2.95 M/uL (4.00-5.50)
[2017-09-21 07:38] LABS: ABS NEUTROPHIL COUNT 1.3; ANISOCYTOSIS 2+; BAND NEUTROPHILS 22.1 % (0-8.0); BASOPHILS 1.9 %; EOSINOPHIL ABS CT 0; HEMATOLOGY COMMENT 1 SN; IMM.PLATELET FRACTION 2.2 (1-7); LYMPHOCYTES 23.1 % (15.0-45.0); METAMYELOCYTES 1.9 %; MICROCYTOSIS 2+; MONOCYTES 9.6 % (0-9.0); OVALOCYTES 1+; PLAT.SUFFICIENCY DECREASED; PLATELET COUNT 39 K/uL (156-360); POLYCHROMASIA 1+; SEG.NEUTROPHILS 41.4 % (46.0-76.0)
[2017-09-21 07:41] VITALS: BP 120/60
[2017-09-21] MEDS ORDERED: MORPHINE SULFAT15 M1 PO (11:41)
[2017-09-21] MEDS ORDERED: LORAZEPAM1 MG PO (11:41)
[2017-09-21] MEDS ORDERED: OXYCODONE HCL5 MG PO (11:41)
[2017-09-21] MEDS ORDERED: FENTANYL1 EAC1 TD (11:41)
== END 2017-09-21 12:56 | disposition home health service (06) | DRG 682 ==
LOC: EME 06:05 → 5EAST 07:53 → EDOF 07:53 → ENRESERV 07:54 → 5EAST 14:52 → ENPENDDIS 09-21 → 5EAST 09-21 12:56
PROVIDERS: Internal Medicine; Internal Medicine Nephrology; Student in an Organized Health Care Education/Training Program
PROC: 30233N1 Transfusion of Nonautologous Red Blood Cells into Peripheral Vein, Percutaneous Approach (ICD-10-PCS; principal; 2017-09-13)
PROC: 5A1D70Z Performance of Urinary Filtration, Intermittent, Less than 6 Hours Per Day (ICD-10-PCS; 2017-09-15)
PROC: 5A1D70Z Performance of Urinary Filtration, Intermittent, Less than 6 Hours Per Day (ICD-10-PCS; 2017-09-18)
PROC: 5A1D70Z Performance of Urinary Filtration, Intermittent, Less than 6 Hours Per Day (ICD-10-PCS; 2017-09-20)
DX: I12.0 Hypertensive chronic kidney disease with stage 5 chronic kidney disease or end stage renal disease (principal); D50.0 Iron deficiency anemia secondary to blood loss (chronic); D63.1 Anemia in chronic kidney disease; N18.6 End stage renal disease; Z99.2 Dependence on renal dialysis; C79.51 Secondary malignant neoplasm of bone; N39.0 Urinary tract infection, site not specified; E46 Unspecified protein-calorie malnutrition; Z92.3 Personal history of irradiation; D61.82 Myelophthisis; E87.2 Acidosis; Z93.6 Other artificial openings of urinary tract status; Z86.73 Personal history of transient ischemic attack (TIA), and cerebral infarction without residual deficits; F17.210 Nicotine dependence, cigarettes, uncomplicated; C61 Malignant neoplasm of prostate; Z87.440 Personal history of urinary (tract) infections; E86.0 Dehydration; G89.3 Neoplasm related pain (acute) (chronic); E87.6 Hypokalemia; Z66 Do not resuscitate; R64 Cachexia; Z51.5 Encounter for palliative care
CPT/HCPCS: 71046; 80048; 80069; 81003; 83540; 84466; 84484; 85014; 85018; 85025; 85027; 86850; 86900; 86901; 86920; 87340; 93005; 93971; 94640; 94640 76; 94667; 94668; 94760; 94799; 99202; 99281; 99285; A6214; J0881; J2405; J3010; P9016; P9040